=== PATIENT | female | born 1960 | race African-American/Black ===

== ENCOUNTER 2020-05-07 21:37 | Emergency (ER) | payer SELFPAY ==
[2020-05-07 23:24] LABS: Absolute Lymphocytes (CBC) 0.8 K/uL (0.7-4.9); Basophils % 0.3 % (0-1.3); Hematocrit 43.1 % (36.0-45.0); Lymphocytes % 14.3 % (15.3-44.8); MPV 8.9 fL (7.6-11.3); RBC Red Blood Cell Count 5.06 M/uL (3.86-4.86)
[2020-05-07 23:25] LABS: Protime INR 1.08
[2020-05-07] MEDS ORDERED: ACETAMINOPHEN 500 MG TAB ONE (23:47)
[2020-05-07] MEDS ORDERED: NA CHLORIDE 0.9% 2,000 ML ONE (23:47)
[2020-05-08 00:11] LABS: Albumin 3.5 g/dL (3.4-5.0); Bilirubin Direct 0.1 mg/dL (0-0.2); Bilirubin Total 0.5 mg/dL (0.2-1.0); C-Reactive Protein 25.6 mg/L (<3.00); Potassium 4.8 mmol/L (3.5-5.1); Protein, Total 8.6 g/dL (6.4-8.2); Troponin (Emerg Dept Use Only) 0.02 ng/mL (0.0-0.045)
--- NOTE | 2020-05-08 03:08 | EDPHYS ---
Physician Documentation [facility] Name: Wayne Raza Age: 59 yrs Sex: Female : 1960 Arrival Date: 05/07/2020 Time: 21:41 Bed 24 Private MD: ED Physician Wesley Denton HPI: 05/07 23:00 This 59 yrs old Black Female presents to ER via Ambulatory with complaints of cp Productive Cough. 23:00 The patient or guardian reports cough, that is constant, difficulty breathing. Onset: cp The symptoms/episode began/occurred 2 day(s) ago. Severity of symptoms: in the emergency department the symptoms are unchanged, despite home interventions. Associated signs and symptoms: Pertinent positives: fever, Pertinent negatives: chest pain, diarrhea, vomiting. Patient reports daughter tested positive for COVID-19 and that she was tested 2 days ago, now awaiting results. - Immunization history:: Adult Immunizations up to date. - Social history:: Smoking status: Patient denies any tobacco usage or history of. ROS: 23:05 Constitutional: Positive for fever. cp 23:05 Eyes: Negative for injury, pain, redness, and discharge. cp 23:05 ENT: Negative for ear pain, sore throat, difficulty swallowing, difficulty handling secretions. 23:05 Neck: Negative for stiffness. 23:05 Cardiovascular: Negative for chest pain, edema, palpitations. 23:05 Respiratory: Positive for cough, "sounds productive", shortness of breath. 23:05 Abdomen/GI: Negative for abdominal pain, nausea, vomiting, and diarrhea. 23:05 Skin: Negative for rash. 23:05 Neuro: Negative for altered mental status, headache, numbness, weakness. 23:05 All other systems are negative. Exam: 23:12 Head/Face: Normocephalic, atraumatic. cp 23:12 Constitutional: The patient appears in no acute distress, alert, awake, non-diaphoretic, non-toxic, well developed, well nourished, appears ill 23:12 Eyes: Periorbital structures: appear normal, Conjunctiva: normal, no exudate, no injection, Sclera: no appreciated abnormality, Lids and lashes: appear normal, bilaterally. 23:12 ENT: External ear(s): are unremarkable, Nose: is normal, Posterior pharynx: Airway: no evidence of obstruction, patent. 23:12 Neck: ROM/movement: is normal, is supple, no meningismus, no nuchal rigidity. 23:12 Chest/axilla: Inspection: normal, Palpation: is normal, no crepitus, no tenderness. 23:12 Cardiovascular: Rate: tachycardic, Rhythm: regular, Edema: is not appreciated, JVD: is not appreciated. 23:12 Respiratory: the patient does not display signs of respiratory distress, Respirations: labored breathing, is not present, accessory muscle usage, is absent, intercostal retractions, are absent, shallow respirations, are not present, Breath sounds: bronchial sounds, that are moderate, are heard diffusely, decreased breath sounds, are not appreciated, stridor, is not appreciated, + upper airway congestion. wheezing: is not appreciated. 23:12 Abdomen/GI: Inspection: abdomen appears normal, Palpation: abdomen is soft and non-tender, in all quadrants. 23:12 Back: pain, is absent, ROM is normal. 23:12 Skin: no rash present. 23:12 Neuro: Orientation: to person, place \\T\\ time. Mentation: is normal, Motor: moves all fours, strength is normal. Vital Signs: 22:25 BP 111 / 79; Pulse 109; Resp 22; Temp 102.6; Pulse Ox 100% on R/A; Weight 97.98 kg (R); dm5 Height 5 ft. 6 in. (167.64 cm); Pain 0/10; 05/08 00:00 BP 126 / 80; Pulse 88; Resp 20; Pulse Ox 97% on R/A; vc 01:00 BP 110 / 65; Pulse 93; Pulse Ox 97% on R/A; vc 02:30 BP 120 / 90; Pulse 88; Resp 20; Temp 99.6(O); Pulse Ox 96% on R/A; vc 03:30 BP 120 / 61; Pulse 94; Resp 21; Pulse Ox 98% on R/A; vc 05/07 22:25 Body Mass Index 34.86 (97.98 kg, 167.64 cm) dm5 MDM: 05/07 22:56 Patient medically screened. cp 23:15 Differential Diagnosis: Bronchitis Influenza Viral Syndrome Pneumonia Other sepsis, cp respiratory failure. 05/08 03:05 Data reviewed: vital signs, nurses notes, lab test result(s), radiologic studies, CT cp scan, plain films, I have discussed the patient's presentation/case with the attending Emergency Department Physician;. 03:05 Counseling: I had a detailed discussion with the patient and/or guardian regarding: the cp historical points, exam findings, and any diagnostic results supporting the discharge/admit diagnosis, lab results, radiology results, the need for outpatient follow up, a family practitioner, to return to the emergency department if symptoms worsen or persist or if there are any questions or concerns that arise at home. Response to treatment: the patient's symptoms have markedly improved after treatment, VSS. Cough and fever improved. Patient appears non-toxic and no signs of respiratory distress. Will discharge to home for continued monitoring. 05/07 22:59 Order name: C-Reactive Protein; Complete Time: 00:31 cp 05/07 22:59 Order name: Sed Rate cp 05/07 22:59 Order name: Fibrinogen 05/07 22:59 Order name: D-Dimer 05/07 22:59 Order name: Basic Metabolic Panel; Complete Time: 00:31 cp 05/08 00:31 Interpretation: Normal except: GLUC 272; BUN 20; CRE 1.31; GFR 51. 05/07 22:59 Order name: Blood Culture Adult (2) 05/07 22:59 Order name: CBC with Diff cp 05/07 22:59 Order name: CPK; Complete Time: 00:31 cp 05/08 00:32 Interpretation: Abnormal: CPK 1548. 05/07 22:59 Order name: Lactate 05/07 22:59 Order name: LFT's; Complete Time: 00:31 cp 05/08 00:33 Interpretation: Normal except: AST 39; TP 8.6; GLOB 5.1; A/G 0.7. 05/07 22:59 Order name: Lipase; Complete Time: 00:31 cp 05/07 22:59 Order name: Procalcitonin; Complete Time: 00:31 cp 05/07 22:59 Order name: Protime (+inr) cp 05/07 22:59 Order name: Ptt, Activated cp 05/07 22:59 Order name: Troponin (emerg Dept Use Only); Complete Time: 00:31 cp 05/07 22:59 Order name: Chest Single View XRAY cp 07/09 22:59 Order name: COVID-19 05/07 22:59 Order name: Flu; Complete Time: 02:18 05/07 22:59 Order name: Strep; Complete Time: 02:18 05/07 23:31 Order name: Protime (+INR); Complete Time: 23:49 EDMS 05/07 23:49 Interpretation: Abnormal: PT 12.7. 05/07 23:31 Order name: PTT, Activated Partial Thromb; Complete Time: 23:49 EDMS 05/07 23:31 Order name: Fibrinogen; Complete Time: 23:49 EDMS 05/07 23:31 Order name: D-Dimer; Complete Time: 23:49 EDMS 05/07 23:49 Interpretation: Abnormal: D-DIMER 595. 05/07 23:35 Order name: CBC with Automated Diff; Complete Time: 23:49 EDMS 05/07 23:49 Interpretation: Normal except: RBC 5.06; SONG% 77.6; LYM% 14.3. 05/07 23:36 Order name: Sedimentation Rate, Westergren; Complete Time: 23:49 EDNJ 05/07 23:44 Order name: Lactate; Complete Time: 23:49 EDNJ 05/08 00:39 Order name: CT Chest For PE Angio 05/08 01:22 Order name: Throat Culture EDNJ 05/07 22:59 Order name: Accucheck; Complete Time: 00:27 05/07 22:59 Order name: Cardiac monitoring; Complete Time: 23:58 05/07 22:59 Order name: EKG - Nurse/Tech; Complete Time: 03:34 05/07 22:59 Order name: IV Saline Lock - Large Bore; Complete Time: 23:58 05/07 22:59 Order name: Labs collected and sent; Complete Time: 23:58 05/07 22:59 Order name: O2 Per Protocol; Complete Time: 23:58 05/07 22:59 Order name: O2 Sat Monitoring; Complete Time: 23:58 05/07 22:59 Order name: Droplet/Contact Precautions; Complete Time: 01:31 05/08 02:22 Order name: Vital Signs: please recheck to include temp; Complete Time: 02:41 cp Administered Medications: 05/07 23:58 Drug: Acetaminophen 1000 mg Route: PO; vc 05/08 03:34 Follow up: Response: No adverse reaction; Temperature is decreased vc 05/07 23:58 Drug: NS 0.9% (30 ml/kg) 30 ml/kg Route: IV; Rate: bolus; Site: right antecubital; vc 05/08 03:34 Follow up: IV Status: Completed infusion; IV Intake: 2000ml vc 03:20 Drug: Rocephin - (cefTRIAXone) 1 grams Route: IVPB; Infused Over: 30 mins; Site: right vc antecubital; 03:34 Follow up: IV Status: Completed infusion; IV Intake: 20ml vc 03:20 Drug: Zithromax 500 mg Route: PO; vc 03:34 Follow up: Response: No adverse reaction vc 03:20 Drug: Tussionex Pennkinetic ER 5 ml Route: PO; vc 03:33 Follow up: Response: No adverse reaction Disposition: 06:45 Co-signature as Attending Physician, Wesley Denton MD. [facility] 05/09 01:36 Co-signature as Attending Physician, Wesley Denton MD. 7 Disposition: 05/08/20 03:07 Discharged to Home. Impression: Pneumonia. - Condition is Stable. - Discharge Instructions: Community-Acquired Pneumonia, Adult. - Prescriptions for Zithromax Z- Nicola 250 mg Oral Tablet - take 1 tablet by ORAL route as directed for 5 days Day 1 - take two (2) tablets one time. Day 2, 3, 4 , 5 take one (1) tablet once daily.; 6 tablet. Albuterol Sulfate 90 mcg/actuation - inhale 1-2 puff by INHALATION route every 4-6 hours; 1 Inhaler. Guaifenesin AC 10- 100 mg/5 mL Oral Liquid - take 10 milliliters by ORAL route every 4 hours As needed; 200 milliliter. - Medication Reconciliation Form, Thank You Letter, Antibiotic Education, Prescription Opioid Use form. - Follow up: Emergency Department; When: 1 - 2 days; Reason: Worsening of condition. - Problem is new. - Symptoms have improved. Addendum: 05/10/2020 10:16 Addendum: Pt called again, no answer, called 3 times to notify patient of + COVID test r n results without answer. . Signatures: Dispatcher [employer] Marc Newton MD MD rn Leonardo Pineda PA PA cp Shama Delgado RN RN vc Wesley Denton MD MD [email or web address] Corrections: (The following items were deleted from the chart) 05/08 03:35 05/07 22:59 Urine Dipstick-Ancillary ordered. cp vc 05/08 03:46 03:07 05/08/2020 03:07 Discharged to Home. Impression: Pneumonia. Condition is Stable. vc Forms are Medication Reconciliation Form, Thank You Letter, Antibiotic Education, Prescription Opioid Use. Follow up: Emergency Department; When: 1 - 2 days; Reason: Worsening of condition. Problem is new. Symptoms have improved. cp
--- NOTE | 2020-05-08 03:08 | ER ---
Nurse's Notes [facility] Name: Wayne Raza Age: 59 yrs Sex: Female : 1960 Arrival Date: 05/07/2020 Time: 21:41 Bed 24 Private MD: Diagnosis: Pneumonia Presentation: 05/07 22:25 Chief complaint: Patient states: productive cough for 2 days. temp of 102.6 in triage. dm5 Coronavirus screen: Patient reports a cough. Patient denies shortness of breath or difficulty breathing. Patient reports a measured and/or subjective temperature greater than 100.4F. Patient denies travel on a cruise ship or to a country the [facility] currently lists as an affected area. Patient reports contact with known and/or suspected case of COVID-19. Ebola Screen: Patient negative for fever greater than or equal to 101.5 degrees Fahrenheit, and additional compatible Ebola Virus Disease symptoms Patient denies exposure to infectious person. Patient denies travel to an Ebola-affected area in the 21 days before illness onset. No symptoms or risks identified at this time. Initial Sepsis Screen: Does the patient meet any 2 criteria? Temp <36.0*C (96.8*F)) or > 38.3*C (100.9*F). HR > 90 bpm. Yes Does the patient have a suspected source of infection? Yes: Productive cough/pneumonia. Risk Assessment: Do you want to hurt yourself or someone else? Patient reports no desire to harm self or others. Onset of symptoms was May 07, 2020. 22:25 Method Of Arrival: Ambulatory 5 22:25 Acuity: KERRY 3 dm5 Triage Assessment: 22:30 General: Appears in no apparent distress. uncomfortable, ill. General: Behavior is vc calm, cooperative, appropriate for age. Respiratory: Onset: The symptoms/episode began/occurred gradually, the patient has mild shortness of breath. Respiratory: Airway is patent Respiratory effort is even, unlabored, Respiratory pattern is regular, symmetrical. Respiratory: Breath sounds are coarse. Respiratory: Reports cough that is productive, Denies shortness of breath. - Immunization history:: Adult Immunizations up to date. - Social history:: Smoking status: Patient denies any tobacco usage or history of. Screenin:30 Abuse screen: Denies threats or abuse. Nutritional screening: No deficits noted. vc Tuberculosis screening: No symptoms or risk factors identified. Fall Risk None identified. Assessment: 22:30 General: Appears in no apparent distress. uncomfortable, ill, Behavior is calm, vc cooperative, appropriate for age. Pain: Complains of pain in chest and abdomen Pain does not radiate. Pain currently is 7 out of 10 on a pain scale. Quality of pain is described as sharp, Aggravated by coughing Noted to be grimacing, guarding. Neuro: Level of Consciousness is awake, obeys commands, lethargic, Oriented to person, place, time, Appropriate for age. Cardiovascular: Reports chest pain, Rhythm is regular. Respiratory: Airway is patent Respiratory effort is even, unlabored, Respiratory pattern is regular, symmetrical, Breath sounds are coarse bilaterally. Respiratory: Reports cough that is productive, pain with cough. GI: No signs and/or symptoms were reported involving the gastrointestinal system. : No signs and/or symptoms were reported regarding the genitourinary system. Derm: Skin is intact, is healthy with good turgor, Skin temperature is hot. 23:30 Reassessment: Patient appears in no apparent distress at this time. Patient and/or vc family updated on plan of care and expected duration. Pain level reassessed. 05/08 00:30 Reassessment: Patient appears in no apparent distress at this time. Patient and/or vc family updated on plan of care and expected duration. Pain level reassessed. 01:30 Reassessment: Patient appears in no apparent distress at this time. Patient and/or vc family updated on plan of care and expected duration. Pain level reassessed. Patient states symptoms have improved. 02:30 Reassessment: Patient appears in no apparent distress at this time. Patient and/or vc family updated on plan of care and expected duration. Pain level reassessed. Patient states symptoms have improved. 03:20 Reassessment: Patient discharge pending shot time. vc 03:28 Reassessment: Patient appears in no apparent distress at this time. Patient and/or vc family updated on plan of care and expected duration. Pain level reassessed. "Patient states she is having pain in abdomen from coughing so much." Patient states symptoms have improved. Vital Signs: 05/07 22:25 BP 111 / 79; Pulse 109; Resp 22; Temp 102.6; Pulse Ox 100% on R/A; Weight 97.98 kg (R); dm5 Height 5 ft. 6 in. (167.64 cm); Pain 0/10; 05/08 00:00 BP 126 / 80; Pulse 88; Resp 20; Pulse Ox 97% on R/A; vc 01:00 BP 110 / 65; Pulse 93; Pulse Ox 97% on R/A; vc 02:30 BP 120 / 90; Pulse 88; Resp 20; Temp 99.6(O); Pulse Ox 96% on R/A; vc 03:30 BP 120 / 61; Pulse 94; Resp 21; Pulse Ox 98% on R/A; vc 05/07 22:25 Body Mass Index 34.86 (97.98 kg, 167.64 cm) dm5 ED Course: 05/07 21:41 Patient arrived in ED. cl3 22:28 Triage completed. dm5 22:30 Arm band placed on. vc 22:30 Patient has correct armband on for positive identification. Placed in gown. Bed in low vc position. Call light in reach. Side rails up X2. battery container finishing hand on. Pulse ox on. NIBP on. 22:34 Wesley Denton MD is Attending Physician. mh7 22:35 Leonardo Pineda PA is PHCP. cp 22:41 Shama Delgado RN is Primary Nurse. vc 23:05 Inserted saline lock: 20 gauge in right antecubital area, using aseptic technique. oe Blood collected. 23:56 Chest Single View XRAY In Process Unspecified. EDMS 05/08 01:49 CT Chest For PE Angio In Process Unspecified. EDMS 03:45 No provider procedures requiring assistance completed. IV discontinued, intact, vc bleeding controlled, No redness/swelling at site. Pressure dressing applied. 09:19 Health Dept notified/ PUI # [id number]/ Sophie from lab notified. eb Administered Medications: 05/07 23:58 Drug: Acetaminophen 1000 mg Route: PO; vc 05/08 03:34 Follow up: Response: No adverse reaction; Temperature is decreased vc 05/07 23:58 Drug: NS 0.9% (30 ml/kg) 30 ml/kg Route: IV; Rate: bolus; Site: right antecubital; vc 05/08 03:34 Follow up: IV Status: Completed infusion; IV Intake: 2000ml vc 03:20 Drug: Rocephin - (cefTRIAXone) 1 grams Route: IVPB; Infused Over: 30 mins; Site: right vc antecubital; 03:34 Follow up: IV Status: Completed infusion; IV Intake: 20ml vc 03:20 Drug: Zithromax 500 mg Route: PO; vc 03:34 Follow up: Response: No adverse reaction vc 03:20 Drug: Tussionex Pennkinetic ER 5 ml Route: PO; vc 03:33 Follow up: Response: No adverse reaction vc Intake: 03:34 IV: 20ml; Total: 20ml. vc 03:34 IV: 2000ml; Total: 2020ml. vc Outcome: 03:07 Discharge ordered by . cp 03:46 Discharged to home ambulatory. vc 03:46 Condition: good 03:46 Discharge instructions given to patient, Instructed on discharge instructions, follow up and referral plans. medication usage, Demonstrated understanding of instructions, follow-up care, medications, Prescriptions given X 4. 03:46 Patient left the ED. vc Signatures: Dispatcher [employer] EDJoan Moralez RN RN dm5 Leonardo Pineda PA PA cp Donald Fox Elizabeth eb Lewis, Charde cl3 Shama Delgado RN RN vc Wesley Denton MD MD mh7 Corrections: (The following items were deleted from the chart) 01:45 07/09 22:25 BP 111 / 79; Pulse 109bpm; Resp 99bpm; Pulse Ox 100% RA; Temp 102.6F; 97.98 dm5 kg Reported; Height 5 ft. 6 in.; BMI: 34.8; Pain 0/10; dm5 07 02:41 02:00 BP 120 / 90; Pulse 88bpm; Resp 20bpm; Pulse Ox 96% RA; Temp 99.6F Oral; vc vc
[2020-05-08] MEDS ORDERED: AZITHROMYCIN 250 MG TAB ONE ×2 (03:21→03:32)
[2020-05-08] MEDS ORDERED: HYDROCODONE/CHLORPHEN 5 ML/OSYR ONE (03:21)
[2020-05-08] MEDS ORDERED: CEFTRIAXONE/SWI 1gm 1 GM/10 ML SYR ONE (03:22)
[2020-05-08 03:57] VITALS: TEMP 99.6
[2020-05-08 03:59] VITALS: BP 120/61; O2SAT 98
--- NOTE | 2020-05-08 08:40 | RAD REPORT ---
EXAM DESCRIPTION: RAD - Chest Single View - 05/07/2020 11:29 pm CLINICAL HISTORY: COUGH Chest pain. COMPARISON: Chest Pa And Lat (2 Views) dated 11/17/2016; Chest Pa And Lat (2 Views) dated 08/23/2016; Chest Pa And Lat (2 Views) dated 03/22/2016 FINDINGS: Portable technique limits examination quality. Moderate bilateral pulmonary opacities are present which may represent interstitial pneumonia. The he art is normal in size. No displaced fractures. IMPRESSION: Moderate interstitial pneumonia pattern.
--- NOTE | 2020-05-08 19:15 | RAD REPORT ---
EXAM DESCRIPTION: CT Chest For Pe Angio CLINICAL HISTORY: 59 years Female Cough; Fever TECHNIQUE: Contiguous axial images obtained through the chest were obtained from the thoracic inlet to the level of the upper abdomen during the pulmonary arterial phase of intravenous contrast adminis tration. Coronal and sagittal reformatted and MIP images provided. This CT exam was performed according to our departmental dose-optimization program, which includes on e or more of the following dose reduction techniques: automated exposure control, adjustment of the m A and/or kV according to patient size, and/or use of iterative reconstruction technique. COMPARISON: No prior exams provided for comparison. FINDINGS: There is no pulmonary embolus. The heart is normal in size without pericardial effusion. There is mild atherosclerosis without thora cic aortic aneurysm or dissection. No lymphadenopathy in the chest. Mild diffuse esophageal thickening. There are scattered small, peripheral, ill-defined airspace infiltrates throughout both lungs, right greater than left. No pleural effusion or pneumothorax. The central airways are patent. There are no visualized acute osseous or upper abdominal abnormalities. IMPRESSION: No pulmonary was. Scattered small, peripheral, ill-defined airspace infiltrates throughout both lungs. These are common ly reported imaging features of Covid 19 pneumonia. Other processes such as influenza pneumonia and o rganizing pneumonia, as can be seen with drug toxicity and connective tissue disease, can cause simil ar imaging pattern. PneTyp Electronically signed by: Renetta Camp MD 05/08/2020 1:56 AM CDT Due to temporary technical issues with the PACS/Fluency reporting system, reports are being signed by the in house radiologist without review as a courtesy to ensure prompt reporting. The interpreting r adiologist is fully responsible for the content of the report.
== END 2020-05-08 03:46 | disposition home or self-care (01) ==
LOC: ER 21:37
DX: U07.1 COVID-19 (principal); J12.89 Other viral pneumonia
CPT/HCPCS: 36415; 71045; 71275; 80048; 80076; 82550; 83605; 83690; 84145; 84484; 85025; 85379; 85384; 85610; 85652; 85730; 86140; 87040; 87070; 87081; 87804; 96365; 96366; 96375; 99284; J0696; J7030; Q9967; U0001

== ENCOUNTER 2020-05-10 15:53 | Emergency (ER) | payer OTHER, SELFPAY ==
--- OUTSIDE RECORDS SUMMARY | 2020-05-10 15:55 | XMS REPORT | Summary of Care ---
:1960 Author Organization [facility] Address [address] [place] [address] Care Team Providers Name Role Phone Devin Nunez Fruit Thinner (Nurse Practitioner) Devin Nunez Primary Care Provider Reason for Visit Reason Comments AMD BLURRED VISION Diabetic Eye Exam Encounter Details Date Type Department Care Team Description 04/06/2020 Office Visit [facility] Health Eye Juan Yoon M D NPDR with macular edema (Primary Dx); [place] Nuclear senile cataract of both eyes; [address] [place] [address]. [place], [place] Dry eye; [place] [address] Refractive error [id number] Allergies No Known Allergiesdocumented as of this encounter (statuses as of 04/06/2020) Medications Medication Sig Dispensed Refills Start Date End Date Status amLODIPine 10 mg Take 10 mg by 0 Active tablet mouth daily. ramipril 10 mg Take 10 mg by 0 A ctive capsule mouth daily. rosuvastatin 10 mg Take 10 mg by 0 Active tablet mouth at bedtime. pregabalin (LYRICA) Take 1 capsule by 90 capsule 1 09/13/2017 Active 75 mg mouth at bedtime. capsuleIndications: Neuropathy Insulin [place], Use as directed 180 Each 1 09/13/2017 Active Disposable, (LAI PEN NEEDLE) 32 gauge x 5/32" NdleIndications: Type 2 diabetes, uncontrolled, with neuropathy metformin ER 500 mg Take 1 tablet by 180 tablet 1 09/13/2017 Active 24 hr mouth 2 (two) tabletIndications: times daily with Type 2 diabetes, meals. uncontrolled, with neuropathy insulin 70/30 100 inject 35 Units 3 Vial 5 01/03/2018 Active unit/mL (70-30) under the skin 2 injectionIndications: (two) times daily Type 2 diabetes, before breakfast uncontrolled, with and dinner. neuropathy pioglitazone 15 mg Take 1 tablet by 30 tablet 5 01/03/2018 Active tabletIndications: mouth daily. Type 2 diabetes, uncontrolled, with neuropathy insulin Use as directed- 60 Syringe 5 01/08/2018 A ctive syringe,safetyneedle twice daily, 1 mL 29 gauge x 1/2" DX:E11.9 SyrgIndications: Type 2 diabetes, uncontrolled, with neuropathy documented as of this encounter (statuses as of 04/06/2020) Active Problems Problem Noted Date Type 2 diabetes, uncontrolled, with neuropathy 017 Neuropathy 09/13/2017 Dyslipidemia 09/13/2017 Essential hypertension 09/13/2017 documented as of this encounter (statuses as of 04/06/2020) Social History Tobacco Use Types Packs/Day Years Used Date Never Smoker Smokeless Tobacco: Never Used Alcohol Use Drinks/Week oz/Week Comments No Sex Assigned at Date Recorded Not on file Job Start Date Occupation Industry Not on file Not on file Not on file Travel History Travel Start Travel End No recent travel history available. COVID-19 Exposure Response Date Recorded In the last month, have you been in contact with No / Unsure 04/06/2020 9:52 AM CDT someone who was confirmed or suspected to have Coronavirus / COVID-19? documented as of this encounter Last Filed Vital Signs Vital Sign Reading Time Taken Comments Blood Pressure - - Pulse - - Temperature - - Respiratory Rate - - Oxygen Saturation - - Inhaled Oxygen Concentration - - Weight 88.5 kg (195 lb) 04/06/2020 9:56 AM CDT Height - - Body Mass Index 31.47 08/14/2019 10:56 AM CDT documented in this encounter Progress Notes Juan Yoon MD - 04/06/2020 9:45 AM CDT Cc: AMD; BLURRED VISION; and Diabetic Eye Exam Carygennaro Raza is a 59 year old female. HPI Patient presents for exam complaining of bilateral blurred vision. Reports history of Avastin OU foredema. Denies any flashes or eye pain. Past Medical History: Diagnosis Date Diabetes mellitus Hypercholesteremia Hypertension Uterine fibroid Review of Systems Reviewed ROS done by the criminal records technician during this encounter and there are additions noted above. Assessment ICD-10-CM ICD-9-CM 1. NPDR with macular edema E11.3219 250.50 362.03 362.07 2. Nuclear senile cataract of both eyes H25.13 366.16 3. Dry eye H04.129 375.15 4. Refractive error H52.7 367.9 Plan Wayne was seen today for amd, blurred vision and diabetic eye exam. Diagnoses and all orders for this visit: NPDR with macular edema - 15 year history of DMII controlled on insulin - last A1c of 10.1 per patient - mild NPDR with DME OU on exam 04/06/20 - discussed findings and importance of glucose control with patient - recommend A1c<7 and tight BP control per PCP - s/p multiple Avastin OU in the past - minimal central fluid OS, monitor - large central cyst OD, s/p multiple avastin OD in the past with minimal improvement, will inject Eylea OD x 3 Nuclear senile cataract of both eyes - NVS - monitor for progression Dry eye - start Ats QID OU Refractive error - Defer MRx until edema improved Follow up: 1 week Eylea OD Alexandria Jacob - 04/06/2020 9:45 AM CDTOct Macula (spectralis) Done today OU documented in this encounter Plan of Treatment Health Maintenance Due Date Last Done Comments HEPATITIS C (HCV) SCREEN 1960 PNEUMOCOCCAL 0-64 YEARS COMBINED SERIES (1 1967 of 1 - PPSV23) CREATININE (SERUM) 1971 EYE EXAM 1971 LDL-C 1971 URINE MICROALBUMIN 1971 DTaP,Tdap,and Td Vaccines (1 - Tdap) 1972 Depression Screening 1973 PAP SMEAR 1982 Breast Cancer Screening (MAMMOGRAM) 2001 COLONOSCOPY 2011 Zoster Recombinant Vaccine (SHINGRIX) (1 2011 of 2) HgA1C 07/06/2018 01/03/2018, 09/13/2017 FOOT EXAM 01/03/2019 01/03/2018, 09/13/2017 INFLUENZA VACCINE (Season Ended) 2020 documented as of this encounter Procedures Procedure Name Priority Date/Time Associated Diagnosis Comme nts OU SPECTRALIS OCT Routine 04/06/2020 NPDR with macular Resul ts for this MACULA, BOTH EYES edema procedure are in the results section . documented in this encounter Results OU SPECTRALIS OCT MACULA, BOTH EYES (04/06/2020) Impressions Performed At OD: Central cyst ,exudates OS: IRF, exudates documented in this encounter Visit Diagnoses Diagnosis NPDR with macular edema - Primary Nuclear senile cataract of both eyes Dry eye Refractive error Unspecified disorder of refraction and a ccommodation documented in this encounter
--- OUTSIDE RECORDS SUMMARY | 2020-05-10 15:55 | XMS REPORT | Continuity of Care Document ---
:[address] [facility] t Address [address] [place] [address] Care Team Providers Name Role Phone Doctor Unassigned, Name Attending Clinician Unavailable Car ACUNA Attending Clinician Problems This patient has no known problems. Allergies, Adverse Reactions, Alerts This patient has no known allergies or adverse reactions. Medications This patient has no known medications. Procedures This patient has no known procedures. Encounters Start End Encounter Admission Attending Care Care Encounter Source Date/Time Date/Time Type Type Clinicians Facility Department ID 2020-04-08 2020-04-08 Orders Doctor LINDA [id number] 00:00:00 00:00:00 Only UnassignedMARY [id number] [place] [facility] [id number] 2020-04-06 2020-04-06 Office BEENA Yoon [id number] 09:46:12 10:01:12 Visit Juan He [id number] [facility] [id number] [facility] [id number] BLDG. 136 Results This patient has no known results.
--- OUTSIDE RECORDS SUMMARY | 2020-05-10 15:56 | XMS REPORT | Summary of Care ---
:1960 Author Organization [facility] Address [address] [place] [address] Care Team Providers Name Role Phone Devin Nunez Binding Bench Worker (Nurse Practitioner) Devin Nunez Primary Care Provider Encounter Details Date Type Department Care Team Description 04/08/2020 Orders Only [facility] Doctor Unassigned, No [address] [facility] Name [place] [phone] [place] [id number] Allergies No Known Allergiesdocumented as of this encounter (statuses as of 04/23/2020) Medications Medication Sig Dispensed Refills Start Date [...] mg mouth at bedtime. capsuleIndications: Neuropathy Insulin [place], Use as directed 180 Each 1 09/13/2017 [...] as of this encounter (statuses as of 04/23/2020) Active Problems Problem Noted Date Type 2 diabetes, uncontrolled, with neuropathy 017 Neuropathy 09/13/2017 Dyslipidemia 09/13/2017 Essential hypertension 09/13/2017 documented as of this encounter (statuses as of 04/23/2020) Social History Tobacco Use Types Packs/Day Years [...] of this encounter Last Filed Vital Signs Not on filedocumented in this encounter Plan of Treatment Health Maintenance Due Date Last Done Comments HEPATITIS C (HCV) SCREEN 1960 PNEUMOCOCCAL 0-64 YEARS COMBINED SERIES (1 1967 of 1 - PPSV23) CREATININE (SERUM) 1971 LDL-C 1971 URINE MICROALBUMIN 1971 DTaP,Tdap,and Td Vaccines (1 - Tdap) 1972 Depression Screening 1973 PAP SMEAR 1982 Breast Cancer Screening (MAMMOGRAM) 2001 COLONOSCOPY 2011 Zoster Recombinant Vaccine (SHINGRIX) (1 2011 of 2) HgA1C 07/06/2018 01/03/2018, 09/13/2017 FOOT EXAM 01/03/2019 01/03/2018, 09/13/2017 INFLUENZA VACCINE (Season Ended) 2020 EYE EXAM 04/06/2021 04/06/2020, 04/06/2020 documented as of this encounter Procedures Procedure Name Priority Date/Time Associated Diagnosis Comme nts AUTHORIZATION FOR RELEASE Routine 04/08/2020 12:01 AM OF PHI CDT documented in this encounter Results Not on filedocumented in this encounter
--- OUTSIDE RECORDS SUMMARY | 2020-05-10 15:56 | XMS REPORT | Summary of Care ---
:1960 Author Organization [facility] Address [address] [place] [address] Care Team Providers Name Role Phone Devin Nunez Solar Photovoltaic Systems Engineer (Nurse Practitioner) Devin Nunez Primary Care Provider Reason for Visit Reason Comments AMD BLURRED VISION Diabetic Eye Exam Encounter Details Date Type Department Care Team Description 04/06/2020 Office Visit [facility] Health Eye Juan Yoon M D NPDR with macular edema (Primary Dx); [place] Nuclear senile cataract of both eyes; [address] [place] [address]. [place], [place] Dry eye; [place] [address] Refractive error [id number] Allergies No Known Allergiesdocumented [...] mg mouth at bedtime. capsuleIndications: Neuropathy Insulin [place], Use as directed 180 Each 1 09/13/2017 [...] of Systems Reviewed ROS done by the emissions repair technician during this encounter and there are [...]
[2020-05-10] MEDS ORDERED: ACETAMINOPHEN 325 MG TABLET ONE (18:21)
[2020-05-10] MEDS ORDERED: NA CHLORIDE 0.9% 1,000 ML ONE (18:22)
[2020-05-10] MEDS ORDERED: dexAMETHasone 10 MG/ML VIAL ONE (18:22)
--- NOTE | 2020-05-10 18:44 | RAD REPORT ---
EXAM DESCRIPTION: Juan Single View05/10/2020 6:14 pm CLINICAL HISTORY: Cough COMPARISON: May 08 FINDINGS: [id number] bilateral pulmonary opacities unchanged The heart is normal size IMPRESSION: Mild to moderate bilateral pulmonary opacities are unchanged which may represent Covid pneumonia
[2020-05-10 18:52] LABS: Absolute Lymphocytes (CBC) 0.7 K/uL (0.7-4.9); Basophils % 0.4 % (0-1.3); Hematocrit 41.9 % (36.0-45.0); Lymphocytes % 8.5 % (15.3-44.8); RBC Red Blood Cell Count 4.86 M/uL (3.86-4.86)
[2020-05-10 18:56] LABS: Protime INR 1.06
[2020-05-10 19:13] LABS: ALT/SGPT 24 U/L (12-78); AST/SGOT 43 U/L (15-37); Albumin 3.1 g/dL (3.4-5.0); Alkaline Phosphatase 66 U/L (45-117); BUN Blood Urea Nitrogen 22 mg/dL (7-18); Bicarbonate 21 mmol/L (21-32); Bilirubin Direct 0.2 mg/dL (0-0.2); Bilirubin Total 0.5 mg/dL (0.2-1.0); Ferritin 1131.8 ng/mL (8-388); Glucose Level 330 mg/dL (74-106); Potassium 5.4 mmol/L (3.5-5.1); Protein, Total 8.3 g/dL (6.4-8.2); Sodium Level 135 mmol/L (136-145); Troponin (Emerg Dept Use Only) < 0.02 ng/mL (0.0-0.045)
[2020-05-10] MEDS ORDERED: Levofloxacin500mg IV 500 MG/100 ML BAG IV ONE (19:16)
--- NOTE | 2020-05-10 20:04 | EDPHYS ---
Physician Documentation [facility] Name: Wayne Raza Age: 59 yrs Sex: Female : 1960 Arrival Date: 05/10/2020 Time: 15:56 Bed 4 Private MD: ED Physician Marc Paulson HPI: 05/10 17:50 This 59 yrs old Black Female presents to ER via Wheelchair with complaints of Shortness rn Of Breath - covid+. 17:50 The patient has shortness of breath at rest, with light activity. Onset: The rn symptoms/episode began/occurred 1 week(s) ago. Duration: The symptoms are continuous. The patient's shortness of breath is aggravated by exertion, light activity, is alleviated by nothing. Severity of symptoms: At their worst the symptoms were mild in the emergency department the symptoms are unchanged. The patient has not experienced similar symptoms in the past. The patient has been recently seen at the [facility] Emergency Department. Reports seen here recently for cough, still not feeling well, + still fever, + mild sob, doesn't feel worse than did before, but urged to come to ER by family because wasn't eating or drinking a lot, and lack of energy has kept her in her bed. No chest pain/abd pain/vomiting/diarrhea. . Historical: - Allergies: 16:24 No Known Allergies; ca1 - PMHx: 16:24 Diabetes - IDDM; Diabetes - NIDDM; Hypertension; High Cholesterol; ca1 - PSHx: 16:24 None; ca1 - Immunization history:: Adult Immunizations up to date. - Social history:: Smoking status: Patient denies any tobacco usage or history of. - Family history:: not pertinent. - Hospitalizations: : No recent hospitalization is reported. ROS: 17:50 Constitutional: + fever Eyes: Negative for injury, pain, redness, and discharge, Neck: rn Negative for injury, pain, and swelling, Cardiovascular: Negative for chest pain, palpitations, and edema, Respiratory: + cough and mild sob Abdomen/GI: Negative for abdominal pain, nausea, vomiting, diarrhea, and constipation MS/Extremity: Negative for injury and deformity, Skin: Negative for injury, rash, and discoloration, Neuro: Negative for headache, numbness, tingling, and seizure. Exam: 17:50 Constitutional: This is a well developed, well nourished patient who is awake, alert rn Head/Face: Normocephalic, atraumatic. ENT: no stridor Cardiovascular: Regular rate and rhythm. No pulse deficits. Respiratory: No increased work of breathing, no retractions or nasal flaring. Abdomen/GI: soft, nontender Skin: Warm, dry MS/ Extremity: Pulses equal, no cyanosis. Neuro: Awake and alert, GCS 15, oriented to person, place, time, and situation. Cranial nerves II-XII grossly intact. Motor strength 5/5 in all extremities. Sensory grossly intact. Vital Signs: 16:18 BP 124 / 63; Pulse 109; Resp 18 S; Temp 99.6(TE); Pulse Ox 96% on R/A; Weight 99.79 kg ca1 (R); Height 5 ft. 8 in. (172.72 cm) (R); 17:30 BP 130 / 68; Pulse 116; Resp 20; Pulse Ox 94% ; bp 18:00 BP 132 / 69; Pulse 111; Resp 19; Pulse Ox 94% ; bp 19:00 BP 130 / 65; Pulse 110; Resp 17; Pulse Ox 93% ; bp 20:27 BP 125 / 62; Pulse 105; Resp 19 S; Temp 100.0(O); Pulse Ox 99% on R/A; jd3 16:18 Body Mass Index 33.45 (99.79 kg, 172.72 cm) ca1 MDM: 17:36 Patient medically screened. 05/10 17:47 Order name: LFT's; Complete Time: 20:01 05/10 20:01 Interpretation: Normal except: AST 43; GLOB 5.2; ALB 3.1; TP 8.3; A/G 0.6. 4 05/10 17:47 Order name: Blood Culture Adult (2) 05/10 17:47 Order name: BMP; Complete Time: 20:01 05/10 20:01 Interpretation: Normal except: NA 135; K 5.4; GLUC 330; BUN 22; GFR 56. [facility] 05/10 17:47 Order name: C-Reactive Protein; Complete Time: 20:01 05/10 20:01 Interpretation: Abnormal: C-REACTIVE PROT 107.00. [facility] 05/10 17:47 Order name: CBC with Diff; Complete Time: 18:56 05/10 20:02 Interpretation: Normal except: WBC 7.8; MCHC 31.7; LYM% 8.5; SONG% 84.5. [facility] 05/10 17:47 Order name: D-Dimer; Complete Time: 20:01 05/10 20:01 Interpretation: Abnormal: D-DIMER 634. [facility] 05/10 17:47 Order name: Ferritin; Complete Time: 20:01 05/10 20:01 Interpretation: KRYSTINA 1131.8. [facility] 05/10 17:47 Order name: Lactate; Complete Time: 20:01 05/10 20:01 Interpretation: Within normal limits: LAC 1.5. [facility] 05/10 17:47 Order name: Procalcitonin; Complete Time: 20:01 05/10 20:02 Interpretation: Within normal limits: Procalcitonin < 0.05. [facility] 05/10 17:47 Order name: PT-INR; Complete Time: 20:01 05/10 20:02 Interpretation: Within normal limits: PT 12.5. [facility] 05/10 17:47 Order name: Ptt, Activated; Complete Time: 20:01 05/10 20:02 Interpretation: Within normal limits: PTT 35.0. [facility] 05/10 17:47 Order name: Troponin (emerg Dept Use Only); Complete Time: 20:01 05/10 20:02 Interpretation: Within normal limits: TROPED < 0.02. [facility] 05/10 17:47 Order name: CXR XRAY; Complete Time: 18:45 05/10 17:47 Order name: IV Start; Complete Time: 18:42 05/10 17:47 Order name: EKG; Complete Time: 17:49 05/10 17:47 Order name: Cardiac monitoring; Complete Time: 18:42 05/10 17:47 Order name: Droplet/Contact Precautions; Complete Time: 17:56 05/10 17:47 Order name: EKG - Nurse/Tech; Complete Time: 19:19 05/10 17:47 Order name: Labs collected and sent; Complete Time: 18:42 05/10 17:47 Order name: O2 Per Protocol; Complete Time: 17:56 05/10 17:47 Order name: O2 Sat Monitoring; Complete Time: 17:56 rn Administered Medications: 18:40 Drug: Tylenol 650 mg Route: PO; bp 19:40 Follow up: Response: No adverse reaction jd3 18:40 Drug: Decadron - Dexamethasone 10 mg Route: IVP; Site: right antecubital; bp 19:40 Follow up: Response: No adverse reaction jd3 18:40 Drug: NS 0.9% 500 ml Route: IV; Rate: bolus; Site: right antecubital; bp 19:40 Follow up: IV Status: Completed infusion; IV Intake: 500ml jd3 19:19 Drug: LevaQUIN 500 mg Volume: 100 ml; Route: IVPB; Infused Over: 60 mins; Site: right jd3 antecubital; 20:19 Follow up: Response: No adverse reaction; IV Status: Completed infusion; IV Intake: jd3 100ml Disposition: 05/10/20 20:03 Discharged to Home. Impression: Coronavirus infection, unspecified. - Condition is Stable. - Discharge Instructions: Upper Respiratory Infection, Adult. - Prescriptions for Medrol (Nicola) 4 mg Oral Tablets, Dose Pack - take 1 tablet by ORAL route as directed - follow package instructions; 1 packet. Albuterol Sulfate 90 mcg/actuation - inhale 1-2 puff by INHALATION route every 4-6 hours; 1 Inhaler. Levaquin 500 mg Oral Tablet - take 1 tablet by ORAL route once daily for 7 days; 7 tablet. - Medication Reconciliation Form, Thank You Letter, Antibiotic Education, Prescription Opioid Use form. - Follow up: Private Physician; When: Upon discharge from the Emergency Department; Reason: Recheck today's complaints, Continuance of care, Re-evaluation by your physician. - Problem is new. - Symptoms have improved. Signatures: Dispatcher [employer] EDMarc Madrid MD MD rn Davies, Jonathon, RN RN jd3 Peltier, Brian, RN RN bp Wadley, Terrence, MD MD tw4 Summer Jason RN RN ca1 Corrections: (The following items were deleted from the chart) 20:51 20:03 05/10/2020 20:03 Discharged to Home. Impression: Coronavirus infection, jd3 unspecified. Condition is Stable. Forms are Medication Reconciliation Form, Thank You Letter, Antibiotic Education, Prescription Opioid Use. Follow up: Private Physician; When: Upon discharge from the Emergency Department; Reason: Recheck today's complaints, Continuance of care, Re-evaluation by your physician. Problem is new. Symptoms have improved. tw4
--- NOTE | 2020-05-10 20:04 | ER ---
Nurse's Notes [facility] Name: Wayne Raza Age: 59 yrs Sex: Female : 1960 Arrival Date: 05/10/2020 Time: 15:56 Bed 4 Private MD: Diagnosis: Coronavirus infection, unspecified Presentation: 05/10 16:18 Chief complaint: Chief complaint: Patient states: No result yet for Covid-19, was ca1 swabbed last week. Did not get results yet, daughter is positive. "my daughter just want me to come here, I wasn't really feeling bad. I just have cough and fever. I got NO SOB, just feeling tired". Coronavirus screen: Patient reports a cough. Patient denies shortness of breath or difficulty breathing. Patient reports a measured and/or subjective temperature greater than 100.4F. Patient denies travel on a cruise ship or to a country the [facility] currently lists as an affected area. Patient reports contact with known and/or suspected case of COVID-19. Daughter Surgical mask in place. Instructed on keeping mask at all times and keep 6 feet distance from other people in the lobby. Verbalized understanding. Ebola Screen: Patient negative for fever greater than or equal to 101.5 degrees Fahrenheit, and additional compatible Ebola Virus Disease symptoms Patient denies exposure to infectious person. Patient denies travel to an Ebola-affected area in the 21 days before illness onset. No symptoms or risks identified at this time. Initial Sepsis Screen: Does the patient meet any 2 criteria? No. Patient's initial sepsis screen is negative. Does the patient have a suspected source of infection? No. Patient's initial sepsis screen is negative. Risk Assessment: Do you want to hurt yourself or someone else? Patient reports no desire to harm self or others. Onset of symptoms was May 10, 2020. 16:18 Method Of Arrival: Wheelchair ca1 16:18 Acuity: KERRY 3 ca1 Triage Assessment: 17:30 General: Appears distressed, uncomfortable, obese, Behavior is cooperative, appropriate bp for age, anxious. Pain: Denies pain. EENT: No deficits noted. Neuro: No deficits noted. Cardiovascular: Rhythm is sinus tachycardia. Respiratory: Reports shortness of breath cough that is Onset: The symptoms/episode began/occurred yesterday, the patient has mild shortness of breath. GI: No signs and/or symptoms were reported involving the gastrointestinal system. : No signs and/or symptoms were reported regarding the genitourinary system. Derm: No deficits noted. Musculoskeletal: No deficits noted. Historical: - Allergies: 16:24 No Known Allergies; ca1 - PMHx: 16:24 Diabetes - IDDM; Diabetes - NIDDM; Hypertension; High Cholesterol; ca1 - PSHx: 16:24 None; ca1 - Immunization history:: Adult Immunizations up to date. - Social history:: Smoking status: Patient denies any tobacco usage or history of. - Family history:: not pertinent. - Hospitalizations: : No recent hospitalization is reported. Screenin:30 Abuse screen: Denies threats or abuse. Denies injuries from another. Nutritional bp screening: No deficits noted. Tuberculosis screening: No symptoms or risk factors identified. Fall Risk None identified. Assessment: 17:35 General: SEE TRIAGE NOTE. bp 18:30 Reassessment: ALL CURRENT ORDERS COMPLETE, IVF INFUSING. Cardiovascular: Rhythm is bp sinus tachycardia. Respiratory: Airway is patent Respiratory effort is even, labored, Breath sounds are coarse bilaterally. 19:22 General: Appears in no apparent distress. comfortable, Behavior is calm, cooperative, jd3 appropriate for age. Pain: Denies pain. Neuro: Level of Consciousness is awake, alert, obeys commands, Oriented to person, place, time, situation. Cardiovascular: Capillary refill < 3 seconds Patient's skin is warm and dry. Rhythm is sinus tachycardia. Respiratory: Reports shortness of breath at rest cough that is persistent Airway is patent Respiratory effort is even, labored, Respiratory pattern is regular, symmetrical. GI: No signs and/or symptoms were reported involving the gastrointestinal system. : No signs and/or symptoms were reported regarding the genitourinary system. EENT: No signs and/or symptoms were reported regarding the EENT system. Derm: Skin is intact, Skin is dry, Skin is normal, Skin temperature is warm. Musculoskeletal: Circulation, motion, and sensation intact. Range of motion: intact in all extremities. 20:08 Reassessment: patient for dc after levaquin infusion. mg2 20:27 Reassessment: Patient appears in no apparent distress at this time. Patient and/or jd3 family updated on plan of care and expected duration. Pain level reassessed. Patient is alert, oriented x 3, equal unlabored respirations, skin warm/dry/pink. Patient states feeling better. Vital Signs: 16:18 BP 124 / 63; Pulse 109; Resp 18 S; Temp 99.6(TE); Pulse Ox 96% on R/A; Weight 99.79 kg ca1 (R); Height 5 ft. 8 in. (172.72 cm) (R); 17:30 BP 130 / 68; Pulse 116; Resp 20; Pulse Ox 94% ; bp 18:00 BP 132 / 69; Pulse 111; Resp 19; Pulse Ox 94% ; bp 19:00 BP 130 / 65; Pulse 110; Resp 17; Pulse Ox 93% ; bp 20:27 BP 125 / 62; Pulse 105; Resp 19 S; Temp 100.0(O); Pulse Ox 99% on R/A; jd3 16:18 Body Mass Index 33.45 (99.79 kg, 172.72 cm) ca1 ED Course: 15:56 Patient arrived in ED. as 16:23 Triage completed. ca1 16:24 Arm band placed on right wrist. ca1 17:30 Patient has correct armband on for positive identification. Bed in low position. Call bp light in reach. Side rails up X2. 17:36 Marc Paulson MD is Attending Physician. rn 17:39 Martin Hodges RN is Primary Nurse. bp 18:14 CXR XRAY In Process Unspecified. EDMS 18:30 Missed attempt(s): 20 gauge in left antecubital area. mh5 18:40 Inserted saline lock: 20 gauge in right antecubital area, using aseptic technique. bp Blood collected. 20:29 No provider procedures requiring assistance completed. IV discontinued, intact, jd3 bleeding controlled, No redness/swelling at site. Pressure dressing applied. Administered Medications: 18:40 Drug: Tylenol 650 mg Route: PO; bp 19:40 Follow up: Response: No adverse reaction jd3 18:40 Drug: Decadron - Dexamethasone 10 mg Route: IVP; Site: right antecubital; bp 19:40 Follow up: Response: No adverse reaction jd3 18:40 Drug: NS 0.9% 500 ml Route: IV; Rate: bolus; Site: right antecubital; bp 19:40 Follow up: IV Status: Completed infusion; IV Intake: 500ml jd3 19:19 Drug: LevaQUIN 500 mg Volume: 100 ml; Route: IVPB; Infused Over: 60 mins; Site: right jd3 antecubital; 20:19 Follow up: Response: No adverse reaction; IV Status: Completed infusion; IV Intake: jd3 100ml Intake: 19:40 IV: 500ml; Total: 500ml. jd3 20:19 IV: 100ml; Total: 600ml. jd3 Outcome: 20:03 Discharge ordered by . tw4 20:29 Condition: stable jd3 20:29 Discharge instructions given to patient, Instructed on discharge instructions, follow up and referral plans. medication usage, Demonstrated understanding of instructions, follow-up care, medications, Prescriptions given X 3. 20:48 Discharged to home via wheelchair, with family. jd3 20:51 Patient left the ED. jd3 Signatures: Dispatcher [employer] Indy Brown Roman, MD MD rn Martinez, Maria Chaz Alfaro RN RN jd3 Martin Hodges RN RN Asa Conner MD MD tw4 Brandin Tolentino, JANELLE RN mg2 Summer Jason RN RN ca1
[2020-05-10 21:05] VITALS: BP 125/62; TEMP 100; O2SAT 99
== END 2020-05-10 20:51 | disposition home or self-care (01) ==
LOC: ER 15:53
DX: U07.1 COVID-19 (principal); I10 Essential (primary) hypertension
CPT/HCPCS: 96365; 96361; 93005 ×2; 87040 ×2; 85025; 80048; 36415; 85610; 85379; 80076; 83605; 85730; 84484; 82728; 84145; 86140; 71045; 96375; 99284; J1100; J7030